=== PATIENT | female | born 2000 | race Caucasian/White ===

== ENCOUNTER 2022-10-12 23:41 | Emergency (ER) | payer MEDICAID, SELFPAY ==
[2022-10-12 23:42] VITALS: BP 143/90; PULSE 102; RESP 18; TEMP 36.9; O2SAT 97; BMI 21.5
[2022-10-13] MEDS: Famotidine 20 MG Tablet PO (00:15)
[2022-10-13] MEDS: Ondansetron ODT 4 MG Tablet PO (00:15)
--- NOTE | 2022-10-13 01:15 | EX.ED.DYSGE1 ---
HPI History of Present Illness Chief Complaint: Nausea/Vomiting Narrative Narrative: 22-year-old female with nausea/vomiting since Monday. Today she notes that she is improved and has not been able to hold down fluids and part of a [employer] sandwich and bread. Denies abdominal pain. No fevers or chills. No diarrhea. Patient has no sick contacts. PFSH PFSH Home Medications ondansetron 4 mg disintegrating tablet 4 mg PO Q8H PRN PRN Nausea #14 tabs 10/13/22 [Rx Last Taken Unknown] Allergy/AdvReac Type Severity Reaction Status Date / Time No Known Allergies Allergy Verified 10/12/22 23:44 Social History Smoking Status: Never smoker ROS ROS ED Constitutional Constitutional ED: Denies chills or fever(s) Eyes Eyes: Denies change in vision ENT ENT ED: Denies rhinorrhea or sore throat Cardiovascular Cardiovascular: Denies chest pain or palpitations Respiratory/Chest Respiratory/Chest: Denies cough or dyspnea Gastrointestinal Gastrointestinal: Reports nausea and vomiting Genitourinary Genitourinary ED: Denies dysuria or hematuria Musculoskeletal Musculoskeletal: Denies arthralgias Integumentary Denies abscess Neurologic Neurologic: Denies headache(s) or paresthesias Psychiatric Psychiatric: Denies anxiety or depression EXAM Physical Exam Const Vital Signs: 10/12/22 23:42 Temperature 98.4 F Temperature Source Temporal Pulse Rate 102 H Respiratory Rate 18 Blood Pressure 143/90 H Blood Pressure Mean 107 Pulse Ox 97 Oxygen Delivery Method Room Air MDM MDM MDM Narrative Medical decision making narrative: Patient seen and examined. She is nauseous but has not vomited all day and she is been able hold on fluids and a [employer] sandwich with additional piece of bread. He is given Zofran p.o. On reevaluation at 1:15 AM the patient is drinking water and feels improved. She request Zofran for home. I do not believe she needs blood work or imaging. Return precautions were discussed. Impression: 1. Nausea/vomit Discharge Plan Triage Chief Complaint: Nausea/Vomiting ED Provider: Nick Hanks Dx/Rx/DC Orders Instructions: ED Vomiting (Adult) Prescriptions: New ondansetron 4 mg tablet,disintegrating 4 mg PO Q8H PRN PRN (Reason: Nausea) Qty: 14 0RF Primary Care Provider: Care Physician,No Primary Referrals: Roxanna Skaggs DO [Med Staff - Active Staff] - 1-2 Days if not improving Care Physician,No Primary [Primary Care Provider] - Disposition Disposition: Home, Self Care
[2022-10-13 01:17] VITALS: RESP 18
== END 2022-10-13 01:18 | disposition home or self-care (01) ==
PROVIDERS: Emergency Provider Student in an Organized Health Care Education/Training Program; Visit Provider Student in an Organized Health Care Education/Training Program
DX: R11.2 Nausea with vomiting, unspecified (principal)
CPT/HCPCS: 99283